=== PATIENT | male | born 1975 | race African-American/Black ===

== ENCOUNTER 2016-11-12 05:35 | Day surgery (SDC) | payer OTHER ==
[2016-11-07 10:23] LABS: BASOPHILS # (AUTO) 0.03 K/uL (0.00-0.20); BASOPHILS % (AUTO) 0.6 % (0.0-2.0); EOSINOPHILS # (AUTO) 0.12 K/uL (0.00-0.70); HEMATOCRIT 46.6 % (41-53); HEMOGLOBIN 15.7 g/dL (13.5-17.5); LYMPHOCYTES # (AUTO) 1.7 K/uL (1.0-4.8); LYMPHOCYTES % (AUTO) 34.9 % (22.0-44.0); MEAN CORPUSCULAR HEMOGLOBIN 30.8 pg (26.0-34.0); MEAN CORPUSCULAR HGB CONC 33.6 G/dL (31.0-37.0); MEAN CORPUSCULAR VOLUME 92 fL (80-100); MONOCYTES # (AUTO) 0.3 K/uL (0.1-1.0); MONOCYTES % (AUTO) 6.7 % (2.0-9.0); NEUTROPHILS # (AUTO) 2.7 K/uL (1.8-7.7); NEUTROPHILS % (AUTO) 55.3 % (40.0-70.0); PLATELET COUNT (AUTO) 198 K/uL (150-450); RED BLOOD CELL COUNT(AUTO) 5.08 MIL/uL (4.50-5.90); RED CELL DISTRIBUTION WIDTH 13.8 % (11.5-14.5)
[2016-11-07 10:53] LABS: ALANINE AMINOTRANSFERASE 34 U/L (12-78); ALBUMIN 3.7 g/dL (3.4-5.0); ANION GAP 11 mmol/L (8-16); ASPARTATE AMINOTRANSFERASE 17 U/L (15-37); BILIRUBIN,TOTAL 0.5 mg/dL (0.1-1.0); CALCIUM, TOTAL 8.9 mg/dL (8.8-10.5); CARBON DIOXIDE 29 mmol/L (22-29); CHLORIDE 98 mmol/L (98-107); CREATININE 0.85 mg/dL (0.60-1.30); GLOMERULAR FILTR. RATE CALC > 60 mL/min (>60); POTASSIUM 3.3 mmol/L (3.5-5.1); SODIUM SERUM 138 mmol/L (136-145); TOTAL PROTEIN, SERUM 7.8 g/dL (6.4-8.2); UREA NITROGEN, BLOOD 13 mg/dL (7-18)
[2016-11-07 10:54] LABS: PROTHROMBIN TIME 10.3 SEC (9.4-11.6)
[2016-11-07 11:09] LABS: URIC ACID 5.2 mg/dL (2.6-7.2)
[~2016-11-12] VITALS: Ht 182.9 cm; Wt 97.3 kg
[~2016-11-12 05:35] MED LIST: ALBUTEROL SULFATE HFA 90 MCG/PUFF 8 GM INHALER IH ONE; DEXAMETHASONE SOD PHOS 4 MG/ML VIAL IVP ONE; EPHEDrine SULFATE 50 MG/ML VIAL IM ONE; LIDOCAINE HCL/PF 2% 5 ML VIAL IM ONE; LISI1TAB9 PO; ONDANSETRON HCL 4 MG/2 ML VIAL IVP ONE; PROPOFOL 1% 20 ML VIAL IVP ONE; SUCCINYLCHOLINE CHLORIDE 20 MG/ML 10 ML VIAL IVP ONE
[2016-11-12] MEDS ORDERED: CeFAZolin 2 GM/DEXTROSE 50 ML IV ONE ×2 (05:45→06:00)
[2016-11-12] MEDS ORDERED: RINGERS SOLUTION,LACTATED 1,000 ML IV ONE ×2 (05:45→06:00)
[2016-11-12] MEDS ORDERED: BUPIVACAINE HCL/PF 0.5% 30 ML VIAL ONE ×2 (06:33→08:45)
[2016-11-12] MEDS ORDERED: LIDOCAINE HCL/PF 2% 5 ML VIAL ONE (06:33)
[2016-11-12] MEDS ORDERED: GUM MASTIC/STORAX/MSAL/ALCOHOL LIQUID 0.67 ML VIAL TP ONE (06:34)
[2016-11-12] MEDS ORDERED: DEXAMETHASONE SOD PHOS 4 MG/ML VIAL ONE ×2 (08:40→08:44)
[2016-11-12] MEDS ORDERED: FentaNYL CITRATE-PF 100 MCG/2 ML VIAL IVP PRN (08:45)
[2016-11-12] MEDS ORDERED: OXYGEN THERAPY IH SCH (08:45)
[2016-11-12] MEDS ORDERED: HYDROmorphone 2 MG/ML SYRINGE IVP PRN (08:45)
[2016-11-12] MEDS ORDERED: MEPERIDINE-PF 25 MG/ML SYRINGE IVP PRN (08:45)
[2016-11-12] MEDS ORDERED: FentaNYL CITRATE-PF 100 MCG/2 ML VIAL IVP ONE (16:43)
[2016-11-12] MEDS ORDERED: MIDAZOLAM HCL 2 MG/2 ML VIAL IVP ONE (16:43)
== END 2016-11-12 10:50 | disposition home or self-care (01) ==
LOC: SURGERY 05:35
PROVIDERS: ATTEND Podiatrist Foot & Ankle Surgery
DX: M24.574 Contracture, right foot (principal); I10 Essential (primary) hypertension; F17.200 Nicotine dependence, unspecified, uncomplicated; Z72.89 Other problems related to lifestyle; Z98.890 Other specified postprocedural states; Z79.01 Long term (current) use of anticoagulants
CPT/HCPCS: 28288; 36415; 73630; 80053; 84550; 84702; 85025; 85610; 85730; 88300; C1713 ×2; C1769; J0330; J0690; J1100; J2250; J2405; J2704; J3010; J3490 ×3; J7120; J3535